=== PATIENT | male | born 1945 | race Caucasian/White ===

== ENCOUNTER 2023-09-13 09:17 | Day surgery (SDC) | payer MEDICARE ==
[2023-09-09 15:42] LABS: BASOPHILS # (AUTO) 0.1 X10'3 (0-0.2); BASOPHILS % (AUTO) 0.6 % (0-1); EOSINOPHILS # (AUTO) 0.6 X10'3 (0-0.9); EOSINOPHILS % (AUTO) 5.1 % (0-6); LYMPHOCYTES # (AUTO) 3.5 X10'3 (1.1-4.8); MEAN CORPUSCULAR HEMOGLOBIN 30.6 PG (27.0-31.0); MEAN CORPUSCULAR HGB CONC 33.3 g/dL (33.0-36.5); MEAN PLATELET VOLUME 8.6 FL (7.4-10.4); MONOCYTES # (AUTO) 0.8 X10'3 (0-0.9); MONOCYTES % (AUTO) 7.4 % (2-12); NEUTROPHILS # (AUTO) 6.3 X10'3 (1.8-7.7); NEUTROPHILS % (AUTO) 55.9 % (42-75); PRE OP HEMATOCRIT 46.4 % (42.0-52.0); PRE OP HEMOGLOBIN 15.4 g/dL (14.0-17.9); PRE OP PLATELET COUNT 243 X10'3 (140-440); PRE OP WHITE BLOOD COUNT 11.2 10'3 (4.8-10.8); RED BLOOD COUNT 5.04 X10'6 (4.70-6.10)
[2023-09-09 15:55] LABS: ALBUMIN 4.3 G/DL (3.4-5.0); ALBUMIN/GLOBULIN RATIO 1.2 (1.1-1.5); ALKALINE PHOSPHATASE 55 IU/L (46-116); BLOOD UREA NITROGEN 26 MG/DL (7-18); BUN/CREATININE RATIO 17.6 (10.0-20.0); CALCIUM 9.5 MG/DL (8.5-10.1); CHLORIDE 104 MMOL/L (99-107); CREATININE 1.48 MG/DL (0.60-1.10); PRE OP ALT 27 U/L (30-65); PRE OP ANION GAP 12 (8-16); PRE OP AST 12 U/L (10-37); PRE OP BILIRUB, TOTAL 0.9 MG/DL (0.0-1.0); PRE OP GLUCOSE 178 MG/DL (70-104); PRE OP POTASSIUM 4.1 MMOL/L (3.4-5.1); PRE OP SODIUM 143 MMOL/L (135-145); TOTAL CARBON DIOXIDE 27.2 MMOL/L (24-32); eGFR 46 ML/MIN
[~2023-09-13] VITALS: Ht 172.7 cm; Wt 85.7 kg
[2023-09-13] MEDS: ringers solution, lacted 1,000 ML IV SCH (05:30)
[2023-09-13] MEDS: DOCUMENT DATE & TIME OF BETA-BLOCKER PO ONE (05:30)
[2023-09-13] MEDS: clindamycin-Cleocin 900mg/D5W 50 ML IV ONE (05:30)
[~2023-09-13 09:17] MED LIST: AMLO2.5T2 PO; EMPA25TA PO; FINA5TAB PO; FLO0.4C PO; GABA300C PO; GLIP5TAB23 PO; LISI10TA27 PO; MENS MULTIVITAMIN PO; METF-438 PO; METO25TA6 PO; SIMV-42 PO
[2023-09-13] MEDS ORDERED: morphine 2 MG/ML inj. syringe IV PRN (09:20)
[2023-09-13] MEDS ORDERED: morphine 4 MG/ML inj SYRINge IV PRN (09:20)
[2023-09-13] MEDS ORDERED: labetalol 20mg/4ml (5mg/ml) syringe IV PRN (09:20)
[2023-09-13] MEDS ORDERED: ringers solution, lacted 1,000 ML IV SCH (09:20)
[2023-09-13] MEDS ORDERED: ondansetron/PF 4mg/2ml inj IV PRN (09:20)
[2023-09-13 09:25] VITALS: BP 143/86; PULSE 66; RESP 16; TEMP 97.6; O2SAT 97
[2023-09-13] MEDS: famotidine 20mg tablet PO ONE (10:08)
[2023-09-13] MEDS ORDERED: fentaNYL/PF 50MCG/1 ML 2ML syringe ONE (10:31)
[2023-09-13] MEDS ORDERED: MIDAZolam 1 MG/ML 5ML VIAL ONE (10:31)
[2023-09-13 11:30] VITALS: BP 127/80; PULSE 65; RESP 16; O2SAT 92
[2023-09-13 11:40] VITALS: BP 113/70; PULSE 61; RESP 16; O2SAT 92
[2023-09-13 11:50] VITALS: BP 116/70; PULSE 62; RESP 15; O2SAT 93
[2023-09-13 12:00] VITALS: BP 118/82; PULSE 61; RESP 14; O2SAT 94
[2023-09-13 12:10] VITALS: BP 120/78; PULSE 66; RESP 15; O2SAT 96
[2023-09-13] MEDS: BUPIVAcaine/PF 2.5mg/ml (0.25%) 10ml vial ONE (13:35)
[2023-09-13] MEDS: LIDOcaine 2% (20mg/ml) 5ml vial ONE (13:36)
== END 2023-09-13 12:20 | disposition home or self-care (01) ==
LOC: PAS 09:17
PROVIDERS: ATTEND Orthopaedic Surgery Hand Surgery
DX: G56.02 Carpal tunnel syndrome, left upper limb (principal); I45.10 Unspecified right bundle-branch block; I10 Essential (primary) hypertension; E11.9 Type 2 diabetes mellitus without complications; Z86.010 Personal history of colon polyps; Z87.442 Personal history of urinary calculi; Z79.84 Long term (current) use of oral hypoglycemic drugs; Z79.899 Other long term (current) drug therapy; Z90.89 Acquired absence of other organs; Z88.0 Allergy status to penicillin
CPT/HCPCS: 36415; 64721; 80053; 82948; 85025; 93005; A4215; A6449; J2001; J2250; J3010; J3490; J7030; J7120; Z7506; Z7512